=== PATIENT | male | born 1955 | race African-American/Black ===

== ENCOUNTER 2019-09-12 17:05 | Emergency (ER) | payer OTHER ==
--- NOTE | 2019-09-12 17:13 | PDOC ---
Rapid Medical Evaluation Time Seen by Provider: 09/12/19 17:11 Medical Evaluation: 09/12/19 17:12 I have performed a brief in-person evaluation of this patient. The patient presents with a chief complaint of: leg redness and swelling Pertinent physical exam findings:stable and in NAD, non-focal I have ordered the following:labs The patient will proceed to the ED for further evaluation.
[2019-09-12 17:15] VITALS: BP 121/74; PULSE 89; TEMP 98.7; BMI 37.2
[2019-09-12 17:47] LABS: BASO % 0.9 % (0-2.0); EOS % 6.2 % (0-4.5); HEMATOCRIT 36.7 % (35.4-49); HEMOGLOBIN 12.3 GM/dL (11.7-16.9); LYMPH % 21.1 % (8-40); MCH 29.1 pg (25.7-33.7); MCHC 33.6 g/dl (32.0-35.9); MEAN CELL VOLUME 86.6 fl (80-96); MEAN PLT VOLUME 8.4 fl (7.5-11.1); MONO % 6.8 % (3.8-10.2); PLATELET COUNT 220 K/MM3 (134-434); RBC 4.23 M/mm3 (4.00-5.60); WHITE BLOOD COUNT 10.5 K/mm3 (4.0-10.0)
[2019-09-12 17:59] LABS: INR 0.96 (0.83-1.09); PROTHROMBIN TIME (PATIENT) 11.3 SEC (9.7-13.0)
[2019-09-12 18:01] LABS: ACTIVATED PTT 31.9 SECONDS (25.2-36.5)
--- NOTE | 2019-09-12 18:05 | PDOC ---
History of Present Illness - General Chief Complaint: Pain, Acute Stated Complaint: LEFT LEG PAIN/EVALUATION Time Seen by Provider: 09/12/19 17:11 - History of Present Illness Initial Comments: 63 year old male with PMH of HTN, HLD, DM, and left abdominal hernia repair presenting with left lower extremity and erythema for the past two days with sudden onset. He has no history of clots, recent travel, immobility, or cancer. Denies fevers, chills, nausea, vomiting, chest pain, SOB, hemomptysis, or other symptoms. 09/12/19 18:13 Past History - Past Medical History Allergies/Adverse Reactions: Allergies Allergy/AdvReac Type Severity Reaction Status Date / Time SPAGHETTI SAUCE Allergy Uncoded 09/12/19 17:15 Home Medications: Ambulatory Orders Amlodipine Besylate [Norvasc -] 10 mg PO DAILY 09/12/19 Aspirin [ASA -] 81 mg PO DAILY 09/12/19 Atorvastatin Ca [Lipitor] 40 mg PO HS 09/12/19 Glipizide 10 mg PO DAILY 09/12/19 Lisinopril [Prinivil] 20 mg PO DAILY 09/12/19 Metformin HCl [Glucophage] 1,000 mg PO BID 09/12/19 [place]-3/Dha/Epa/Fish Oil [Fish Oil 1,000 mg Softgel] 1 each PO DAILY 09/12/19 Omeprazole 40 mg PO DAILY 09/12/19 Paliperidone [Paliperidone ER] 3 mg PO DAILY 09/12/19 Tamsulosin HCl [Flomax] 0.4 mg PO DAILY 09/12/19 COPD: No Diabetes: Yes GI Disorders: Yes (REFLUX, UMBILICAL HERNIA) HTN: Yes Hypercholesterolemia: Yes Psychiatric Problems: Yes (DEPRESSION) - Surgical History Abdominal Surgery: (HERNIA X 2) - Psycho Social/Smoking Cessation Hx Smoking History: Never smoked Hx Alcohol Use: No Drug/Substance Use Hx: No Review of Systems - Review of Systems Constitutional: No: Chills, Diaphoresis, Fever, Loss of Appetite HEENTM: No: Eye Pain, Blurred Vision, Tearing Respiratory: No: Cough, Orthopnea, Shortness of Breath, Wheezing, Productive cough Cardiac (ROS): Yes: Edema. No: Lightheadedness, Palpitations, Chest Tightness ABD/GI: No: Diarrhea, Nausea, Vomiting : No: Dysuria, Discharge Musculoskeletal: No: Joint Pain, Joint Swelling, Muscle Pain Integumentary: Yes: Erythema, Lesions Neurological: No: Headache, Numbness, Paresthesia, Tingling Psychiatric: No: Anxiety, Depression Hematologic/Lymphatic: No: Anemia, Blood Clots, Easy Bleeding *Physical Exam - Vital Signs Last Vital Signs Temp Pulse Resp BP Pulse Ox 98.7 F 89 16 121/74 98 09/12/19 17:11 09/12/19 17:11 09/12/19 17:11 09/12/19 17:11 09/12/19 17:11 - Physical Exam General Appearance: Yes: Nourished, Appropriately Dressed. No: Apparent Distress HEENT: positive: EOMI, ANAY, Normal ENT Inspection, Normal Voice Neck: positive: Trachea midline, Normal Thyroid, Supple. negative: Tender, Rigid Respiratory/Chest: positive: Lungs Clear, Normal Breath Sounds. negative: Chest Tender, Respiratory Distress, Accessory Muscle Use Cardiovascular: positive: Regular Rhythm, Regular Rate Gastrointestinal/Abdominal: positive: Normal Bowel Sounds, Flat, Soft. negative : Tender Lymphatic: negative: Adenopathy, Tenderness Musculoskeletal: negative: Normal Inspection (left leg swelling, erythema, mild warmth, and pain with calf flexion), Decreased Range of Motion Extremity: positive: Normal Capillary Refill, Tender, Pedal Edema, Calf Tenderness, Erythema. negative: Normal Inspection, Normal Range of Motion Integumentary: positive: Normal Color, Dry, Warm Neurologic: positive: Fully Oriented, Alert, Normal Mood/Affect, Normal Response , Motor Strength 5/5 ED Treatment Course - LABORATORY CBC & Chemistry Diagram: 09/12/19 17:29 09/12/19 17:29 - ADDITIONAL ORDERS Additional order review: Laboratory Results 09/12/19 17:29 PT with INR 11.30 INR 0.96 PTT (Actin FS) 31.9 09/12/19 17:29 RBC 4.23 MCV 86.6 MCHC 33.6 RDW 14.0 MPV 8.4 Neutrophils % 65.0 Lymphocytes % 21.1 Monocytes % 6.8 Eosinophils % 6.2 H Basophils % 0.9 Medical Decision Making - Medical Decision Making 63 year old male with diabetes and HTN presenting with left red legness and swelling concerning for DVT vs,. cellulites. Labs wnl but US pending and leg XR pending. Plan to re-eval and likely admit for IV antibiotics given risk factors for severely worsening infection. 09/12/19 19:38 Discharge - Follow up/Referral Referrals: Bowen Gould MD [Primary Care Provider] - - Patient Discharge Instructions - Post Discharge Activity
[2019-09-12 18:08] LABS: ALBUMIN 3.4 g/dl (3.4-5.0); BILIRUBIN,TOTAL 0.4 mg/dL (0.2-1); BLOOD UREA NITROGEN 14.3 mg/dL (7-18); CALCIUM 9.4 mg/dL (8.5-10.1); CREATININE 0.9 mg/dL (0.55-1.3); POTASSIUM 4.3 mmol/L (3.5-5.1); TOT PROT 7.2 g/dl (6.4-8.2)
--- NOTE | 2019-09-12 18:30 | PDOC ---
Documentation entered by Bowen Singh SCRIBE, acting as scribe for aMrie Watt DO. Marie Watt DO: This documentation has been prepared by the Francisco rios Daniel, SCRIBE, under my direction and personally reviewed by me in its entirety. I confirm that the documentation accurately reflects all work, treatment, procedures, and medical decision making performed by me. Attending Attestation - Resident Resident Name: Brenden Sapp - ED Attending Attestation I have performed the following: I have examined & evaluated the patient, The case was reviewed & discussed with the resident, I agree w/resident's findings & plan, Exceptions are as noted - HPI HPI: 09/12/19 18:42 The patient is a 63 year old male with a past medical history of diabetes, HTN, depression, schizophrenia, and HLD here today for evaluation of left lower extremity swelling. The patient reports that 2 days ago he had a sudden onset of left lower extremity swelling and erythema. Patient denies trauma and notes some intermittent itching and tenderness at the left ankle. Patient denies headache, lightheadedness. Denies fever, chills. Denies chest pain, shortness of breath. Denies nausea, vomiting, diarrhea, abdominal pain. Social history: current every day smoker PCP: Bowen Gould - Physicial Exam PE: 09/12/19 18:42 Constitutional: Awake, alert, oriented. No acute distress. Head: Normocephalic. Atraumatic Eyes: PERRL. EOMI. Conjunctivae are not pale. ENT: Mucous membranes are moist and intact. Posterior pharynx without exudates or erythema. Uvula midline. Neck: Supple. Full ROM. No lymphadenopathy. Cardiovascular: Regular rate. Regular rhythm. S1, S2 regular. Distal pulses are 2+ and symmetric. Pulmonary/Chest: No evidence of respiratory distress. Clear to auscultation bilaterally No wheezing, rales or rhonchi. Abdominal: Soft and non-distended. There is no tenderness. No rebound, guarding or rigidity. No organomegaly. No palpable masses. Good bowel sounds. Back: No CVA tenderness. Musculoskeletal: +redness and warmth of left lower extremity with 2+pitting edema from calf down to foot. \ No cyanosis. No clubbing. Full range of motion in all extremities. Radial/pedal pulses are intact and 2+ bilaterally Skin: +dry scaling skin on feet bilaterally with no wounds. Skin is warm and dry. No petechiae. No purpura. Neurological: Alert and oriented to person, place, and time. Cranial nerves II -XII are grossly intact. Normal speech. Strength is grossly symmetric. No sensory deficits. Psychiatric: Good eye contact. Normal interaction, affect and behavior. - Medical Decision Making 09/12/19 18:29 I, Dr. Marie Watt, DO, attest that this document has been prepared under my direction and personally reviewed by me in its entirety. I further attest, that it accurately reflects all work, treatment, procedures and medical decision -making performed by me. 09/12/19 18:52 a/p: 63yo male with hx of DM, HTN, PVD with LLE swelling -hx of depression/schizophrenia -swelling to LLE with redness, warmth -a1c per labs is 6.5 and well controlled -labs sent from [facility] show wbc of 10.5 -pending ultrasound and xray 09/12/19 19:58 no dvt 09/12/19 19:58 no elevated wbc 09/12/19 19:58 pt with cellulitis to LE xray without gas in the tissue 09/12/19 20:00 will start abx 09/12/19 20:04 pt will le cellulitis, will start iv abx, vanco and zosyn given hx of dm and pvd 09/12/19 20:30 pt states he can't stay for iv abx states he cant get work coverage discussed that dvt study was negative but concern over LE cellulitis discussed that he need abx and would prefer to give them iv and keep in the hospital states he cannot stay states he needs to sign out ama states he will follow up with DR. Gould on tuesday and return sooner if his symptoms worsen pt is ambulatory in the ED Note: The patient insists on leaving the emergency dept and is signing out against medical advice. The patient understands the risks and complications that may result from the refusal of medical care and admission which includes and permanent disability. The patient has the mental capacity of understanding the risks of refusing care and is capable of making an informed decision. The patient was instructed to return to the emergency department should He change his mind regarding medical care or should his condition worsen. The patient signed the Against Medical Advice form. Discharge - Discharge Information Problems reviewed: Yes Clinical Impression/Diagnosis: Cellulitis Condition: Unchanged/Unknown Disposition: AGAINST MEDICAL ADVICE - Admission Yes - Additional Discharge Information Prescriptions: Cephalexin [Keflex] 500 mg PO QID #40 capsule Sulfamethoxazole/Trimethoprim [Bactrim Ds -] 1 tab PO BID #20 tablet - Follow up/Referral Referrals: Bowen Gould MD [Primary Care Provider] - - Patient Discharge Instructions Patient Printed Discharge Instructions: DI for Cellulitis -- Adult Additional Instructions: Please take all antibiotics as prescribed. If the cellulitis does not improve please return to the closest ER for intravenous antibiotics and admission. Please see your PMD tomorrow or tuesday. You have signed out Against medical advice, please see your provider KARRIE. - Post Discharge Activity
--- NOTE | 2019-09-12 20:00 | PDOC ---
*Physical Exam - Vital Signs Last Vital Signs Temp Pulse Resp BP Pulse Ox 98.7 F 89 16 121/74 98 09/12/19 17:11 09/12/19 17:11 09/12/19 17:11 09/12/19 17:11 09/12/19 17:11 ED Treatment Course - LABORATORY CBC & Chemistry Diagram: 09/12/19 17:29 09/12/19 17:29 - ADDITIONAL ORDERS Additional order review: Laboratory Results 09/12/19 09/12/19 09/12/19 17:29 17:29 17:29 PT with INR 11.30 INR 0.96 PTT (Actin FS) 31.9 Sodium 141 Potassium 4.3 Chloride 105 Carbon Dioxide 29 Anion Gap 6 L BUN 14.3 Creatinine 0.9 Est GFR (CKD-EPI)AfAm 104.98 Est GFR (CKD-EPI)NonAf 90.58 Random Glucose 194 H Lactic Acid 0.9 Calcium 9.4 Total Bilirubin 0.4 AST 8 L ALT 25 Alkaline Phosphatase 90 Total Protein 7.2 Albumin 3.4 09/12/19 17:29 RBC 4.23 MCV 86.6 MCHC 33.6 RDW 14.0 MPV 8.4 Neutrophils % 65.0 Lymphocytes % 21.1 Monocytes % 6.8 Eosinophils % 6.2 H Basophils % 0.9 Medical Decision Making - Medical Decision Making 09/12/19 19:56 63yo M hx smoking, DM, HTN, depression, schizophrenia, and HLD presents with atraumatic LLE swelling, erythema, itching, and tenderness x2 days. Denies systemic sx. PCP - Bowen Gould. PE notable for LLE erythema, warmth, and 2+ PE distal to calf, neurovascularly intact. Labs notable for WBC 10.5. Pending US and tib/fib XR for DVT vs cellulitis. Hemodynamically stable, afebrile. Pt seen and assessed at bedside. 09/12/19 21:16 Pt left AMA prior to admission. Discharge - Discharge Information Problems reviewed: Yes Clinical Impression/Diagnosis: Cellulitis Condition: Unchanged/Unknown Disposition: AGAINST MEDICAL ADVICE - Additional Discharge Information Prescriptions: Cephalexin [Keflex] 500 mg PO QID #40 capsule Sulfamethoxazole/Trimethoprim [Bactrim Ds -] 1 tab PO BID #20 tablet - Follow up/Referral Referrals: Bowen Gould MD [Primary Care Provider] - - Patient Discharge Instructions Patient Printed Discharge Instructions: DI for Cellulitis -- Adult Additional Instructions: Please take all antibiotics as prescribed. If the cellulitis does not improve please return to the closest ER for intravenous antibiotics and admission. Please see your PMD tomorrow or tuesday. You have signed out Against medical advice, please see your provider KARRIE. - Post Discharge Activity
[2019-09-12] MEDS ORDERED: PIPERACILLIN/TAZOB 3.375 GM 3.375 GM in DEXTROSE 5%-WATER - 50 ML IVPB ONE (20:04)
[2019-09-12] MEDS ORDERED: VANCOMYCIN 1 GM in D5W (PRE-DOCKED) 1,000 MG/250 ML IVPB ONE (20:04)
[2019-09-12] MEDS ORDERED: PIPERACILLIN/TAZOB 3.375 GM 3.375 GM/50 ML BAG IVPB ONE (20:10)
[2019-09-12] MEDS ORDERED: VANCOMYCIN 1 GRAM (PRE-DOCKED) 1,000 MG/250 ML BAG IVPB ONE (20:10)
[2019-09-12] MEDS ORDERED: SULFAMETHOXAZOLE/TRIMETHOPRIM 800MG/160MG D.S. TABLET PO ONE (20:26)
[2019-09-12] MEDS ORDERED: CEPHALEXIN MONOHYDRATE 500 MG CAPSULE (UD) PO ONE (20:26)
[2019-09-12] MEDS ORDERED: SULFAMETHOXAZOLE/TRIMETHOPRIM 800MG/160MG D.S. TABLET ONE (20:29)
[2019-09-12] MEDS ORDERED: CEPHALEXIN MONOHYDRATE 500 MG CAPSULE (UD) ONE (20:29)
== END 2019-09-12 20:35 | disposition left against medical advice (07) ==
LOC: JER 17:05
DX: L03.90 Cellulitis, unspecified (principal); E11.9 Type 2 diabetes mellitus without complications; I10 Essential (primary) hypertension; F32.9 Major depressive disorder, single episode, unspecified; F20.9 Schizophrenia, unspecified; E78.5 Hyperlipidemia, unspecified
CPT/HCPCS: 36415; 73590-TC-LT-FY; 80053; 83605; 85025; 85610; 85730; 87040; 93971-TC; 99283-25